=== PATIENT | female | born 2000 | race African-American/Black ===

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

== ENCOUNTER 2022-05-26 17:29 | Outpatient (CLI) | payer OTHER, SELFPAY ==
[2022-05-26 17:52] LABS: Basophils Percent Auto 0.3 % (0.2-1.2); Eosinophils Absolute Auto 0.1 K/mm3 (0-0.3); Hematocrit 32.2 % (37.0-47.0); Immature Granulocyte Percent A 1.8 % (0-0.5); Lymphocytes Absolute Auto 2.98 K/mm3 (0.9-3.2); Lymphocytes Percent Auto 26.2 % (18.3-44.2); Mean Corpuscular HGB Conc 31.1 g/dl (32-36); Mean Corpuscular Hemoglobin 23.7 pg (26-34); Mean Corpuscular Volume 76.3 fl (80-100); Mean Platelet Volume 10.7 fl (7.4-10.4); Monocytes Absolute Auto 0.9 K/mm3 (0.1-0.6); Monocytes Percent Auto 8.2 % (2.6-8.5); Neutrophils Absolute Auto 7.1 K/mm3 (1.3-6.7); Neutrophils Percent Auto 62.5 % (45.5-73.1); Platelet Count Result 275 k/mm3 (150-375); Red Blood Count 4.22 M/mm3 (4.2-5.4); Red Cell Distribution Width 15.9 % (11.5-14.5); White Blood Count 11.4 K/mm3 (4.5-10.0)
[2022-05-26 20:19] LABS: HIV 1/2 Ab P24 Ag Result Negative (Negative)
== END 2022-05-26 17:30 | disposition home or self-care (01) ==
LOC: ANHLAB 17:31
PROVIDERS: PCP Nurse Practitioner Family; Visit Provider Obstetrics & Gynecology
DX: Z34.90 Encounter for supervision of normal pregnancy, unspecified, unspecified trimester (principal); Z3A.00 Weeks of gestation of pregnancy not specified
CPT/HCPCS: 36415; 85025; 86703; G0432

== ENCOUNTER 2022-06-23 06:09 | Inpatient (IN) | payer OTHER, SELFPAY ==
[2022-06-23] VITALS (48 sets, daily range): BP systolic 70–152; BP diastolic 13–105; PULSE 69–150; RESP 16–18; TEMP 36.2–36.7; O2SAT 98–100; BMI 33.8
--- NOTE | 2022-06-23 06:48 | LDADM ---
This patient, Bernie Rosales, was admitted to Labor/Delivery/Recovery 104 on 06/23/22 at 06:09. Plans for labor, pain management and were discussed with patient. Patient/family oriented to hospital policies and general routines including ID bracelet, bed and alarms, visiting hours, pain management, procedures, bathroom and other care routines, personal items, smoking policy, room service/diet and guest tray routines, infant security routines, and visiting hours. Patient/Family are encouraged to report perceived risks to care and to ask questions if they do not understand what they are told or what they should do. See OBIX for further documentation.
[2022-06-23 07:01] LABS: Basophils Percent Auto 0.2 % (0.2-1.2); Eosinophils Absolute Auto 0.1 K/mm3 (0-0.3); Eosinophils Percent Auto 0.7 % (0-4.4); Hematocrit 32.7 % (37.0-47.0); Immature Granulocyte Absolute 0.15 K/mm3 (0.00-0.031); Immature Granulocyte Percent A 1.5 % (0-0.5); Lymphocytes Absolute Auto 3.01 K/mm3 (0.9-3.2); Lymphocytes Percent Auto 29.5 % (18.3-44.2); Mean Corpuscular HGB Conc 30.6 g/dl (32-36); Mean Corpuscular Hemoglobin 23.5 pg (26-34); Mean Corpuscular Volume 76.9 fl (80-100); Monocytes Absolute Auto 0.9 K/mm3 (0.1-0.6); Monocytes Percent Auto 8.5 % (2.6-8.5); Neutrophils Absolute Auto 6.1 K/mm3 (1.3-6.7); Neutrophils Percent Auto 59.6 % (45.5-73.1); Platelet Count Result 244 k/mm3 (150-375); Red Blood Count 4.25 M/mm3 (4.2-5.4); Red Cell Distribution Width 17.6 % (11.5-14.5); White Blood Count 10.2 K/mm3 (4.5-10.0)
[2022-06-23] MEDS: LACTATED RINGERS 1,000 ML 125 ML IV CONT ×2 (07:04→12:08)
[2022-06-23] MEDS: OXYTOCIN 30 UNITS/NS 500 ML 30 UNITS/500 ML BAG IV CONT (07:06)
[2022-06-23] MEDS: AMPICILLIN 2 GM/NS 100 ML 2 GM/100 ML BAG IVPB (07:06)
--- NOTE | 2022-06-23 07:14 | WPDOBADMIT ---
Obstetrics - Admit Note Admission Note: record reviewed. No pertinent additions to the history and/or any subsequent changes in the physical findings that are not consistent with the expected course of the were found. Additions to the history and/or subsequent changes in the physical findings follow. Bernie is a 21yo @40.1wks who presents for elective induction of labor. Her is complicated by: - Varicella non-immune - Mild anemia on iron daily - Obesity; BMI 35 - Short interpregnancy interval; last delivery 03/2021 - GBS positive FHT's: 140's/ mod brittni/ + accels/ no decels - cat 1 TOCO: ctx's q4min Cervix: /-2 Membranes: intact; GBS positive Presentation: cephalic Pitocin augmentation Will AROM after dose of ampicillin Anesthesia consult PRN pain Continuous monitoring
--- NOTE | 2022-06-23 07:24 | WPDHPUPDATE1 ---
History and Physical Update Update Date/Time: 06/23/22 07:24 History and Physical has been reviewed, including an updated exam of the patient. There are NO changes in the patient's condition. Risks, benefits, and alternatives have been discussed and questions answered. Patient agrees to proceed with procedure.
[2022-06-23 08:04] LABS: Hepatitis B Surface Antigen Negative (Negative)
[2022-06-23 09:21] LABS: Rapid Plasma Reagin Non-Reactive (NonReactive)
--- NOTE | 2022-06-23 10:43 | PM.OBPNLAB ---
Pain Control Date/time seen: 06/23/22 10:43 Pain control: tolerating well Pelvic Exam Dilation (cm): 5 Effacement (%): 50 station: -2 Amniotic membrane status: Ruptured (AROM, light mec 1040) Contractions Monitor mode: Internal Status status: Category ll Comments: occasional mild variable; good variability Assessment and Plan Pitocin rate (mU/min): 12 Assessment: induction ongoing Plan: continuous present management Comments: consult anesthesia PRN pain
[2022-06-23] MEDS: AMPICILLIN 1 GM/NS 50 ML 1 GM/50 ML BAG IVPB (11:15)
--- NOTE | 2022-06-23 12:18 | WPDANESEPP ---
Anes - Eval Pre Procedure Procedure: labor pain management Date/Time: 06/23/22 12:18 Surgeon: Milton Preop Diagnosis: pain during labor Pre Op Diagnosis: Induction of Labor Patient Data Age: 21 Gender: F Height: 1.7 m Weight: 98 kg Last Vital Signs Temp 97.1 F L 06/23/22 10:40 Pulse 91 06/23/22 12:16 BP 133/76 06/23/22 12:16 Pulse Ox 99 06/23/22 12:16 O2 Del Method Room Air 06/23/22 06:46 Allergies Allergy/AdvReac Type Severity Reaction Status Date / Time No Known Allergies Allergy Verified 06/23/22 06:53 Home Medications Medication Instructions Recorded Confirmed Type ferrous sulfate 325 mg (65 mg 325 mg PO DAILY #90 tabs 04/16/22 06/23/22 Rx iron) tablet vitamin #56-iron 35 mg 1 cap PO DAILY #90 caps 04/16/22 06/23/22 Rx and 5 mg-folic acid 1 mg-dha capsule Laboratory Tests 06/23/22 06/23/22 06/23/22 06:45 06:45 06:45 WBC 10.2 K/mm3 H K/mm3 (4.5-10.0) RBC 4.25 M/mm3 M/mm3 (4.2-5.4) Hgb 10.0 g/dL L g/dL (12.0-15.0) Hct 32.7 % L % (37.0-47.0) MCV 76.9 fl L fl (80-100) MCH 23.5 pg L pg (26-34) MCHC 30.6 g/dl L g/dl (32-36) RDW 17.6 % H % (11.5-14.5) Plt Count 244 k/mm3 k/mm3 (150-375) MPV 11.0 fl H fl (7.4-10.4) Immature Gran % (Auto) 1.5 % H % (0-0.5) Neut % (Auto) 59.6 % % (45.5-73.1) Lymph % (Auto) 29.5 % % (18.3-44.2) [place] % (Auto) 8.5 % % (2.6-8.5) Eos % (Auto) 0.7 % % (0-4.4) Baso % (Auto) 0.2 % % (0.2-1.2) Lymph # (Auto) 3.01 K/mm3 K/mm3 (0.9-3.2) [place] # (Auto) 0.9 K/mm3 H K/mm3 (0.1-0.6) Eos # (Auto) 0.1 K/mm3 K/mm3 (0-0.3) Baso # (Auto) 0.0 K/mm3 K/mm3 (0.0-0.1) Abs Immat Gran (auto) 0.15 K/mm3 H K/mm3 (0.00-0.031) Absolute Neuts (auto) 6.1 K/mm3 K/mm3 (1.3-6.7) Absolute Nucleated RBC 0.0 K/mm3 K/mm3 (0.0-0.012) Nucleated RBC % 0.0 % % (0.0-0.2) RPR Non-reactive (NonReactive) Hep Bs Antigen Blood Type O Positive Antibody Screen Negative 06/23/22 06:45 WBC RBC Hgb Hct MCV MCH MCHC RDW Plt Count MPV Immature Gran % (Auto) Neut % (Auto) Lymph % (Auto) [place] % (Auto) Eos % (Auto) Baso % (Auto) Lymph # (Auto) [place] # (Auto) Eos # (Auto) Baso # (Auto) Abs Immat Gran (auto) Absolute Neuts (auto) Absolute Nucleated RBC Nucleated RBC % RPR Hep Bs Antigen Negative (Negative) Blood Type Antibody Screen Patient hx anesthesia problems: none Family hx anesthesia problems: none Results Review: All pre-operative results and documents have been reviewed as part of the pre-operative evaluation. [facility] Past Medical History Medical History Anxiety and depression Morbid obesity Family History Family History Other No pertinent family history Social History Social History Smoking status: Former smoker Alcohol intake: never Substance use: never Lack of Transportation: No Lack of Food: Never True Current Housing: I Have Housing Concerned About Future Housing: No Difficulty Paying Gas/Electric Bills: No Difficulty Paying for Meds: No Currently Unemployed: No Education: High School Diploma/GED Difficulty w/ Childcare or Family Care: No Gender identity (if verbalized by the patient): Female Spiritual care concerns: No Exam Day of Procedure 06/23/22 12:18
--- NOTE | 2022-06-23 12:47 | PM.OBPRVD ---
OB - Delivery Note Procedure Delivery date: 06/23/22 Events: Elective Induction of Labor Induction method: Per Pitocin Protocol Delivery augmentation: Rupture of Membranes Delivery monitor: External FHT and Internal Uterine Route of delivery: Laceration Description: Periurethral Delivery repair: vicryl Specimen: No Quantitative Blood Loss (ml): 250 Anesthesia type: Epidural Disposition: Floor Baby Date of : 06/23/22 Time of : 12:30 Weeks of gestation at delivery: 40 (.1) Infant gender: Female Weight (pounds): 7 Weight (ounces): 3 presentation: vertex position: Left Occiput Anterior Placenta delivery description: Expressed Cord Vessel Description: 3 Vessels and Delayed Cord Clamping score one minute: 9 score five minutes: 9 Narrative: Bernie received her epidural, then shortly after reported significant pelvic pressure. She was examined and found to be completely dilated. She pushed four times with good maternal effort and delivered the head over intact perineum. No nuchal cord was palpated. She easily delivered the 's shoulders and body without complication. The infant had spontaneous cry and her mouth and nose were bulb suctioned. Delayed cord clamping was performed. The umbilical cord was then clamped and cut. A segment of the cord was collected for cord gases. The remaining cord blood was collected for typing. With Pitocin running and gentle downward traction on the cord, the placenta delivered without complications. Bimanual massage was performed and good uterine tone with minimal bleeding was noted. She was examined and a small periurethral laceration was noted to be bleeding. The laceration was repaired in the normal fashion using 3-0 Vicryl and the laceration was found to be hemostatic. Good fundal tone with minimal bleeding remained. Sponge, lap, instrument, needle counts were correct at the end of the procedure. Mom and baby were left bonding in the birthing suite in stable condition. [facility] Delivery Billing Delivery Delivery: Delivery Charge
[2022-06-23] MEDS: OXYTOCIN 30 UNITS/NS 500 ML 30 UNITS/500 ML BAG 125 UNITS IV CONT (12:57)
--- NOTE | 2022-06-23 16:42 | PC.NURSE ---
Patient transferred to post room #284 via wheelchair. Support person present. Oriented to unit, room, information board, rooming in, admission packet and security measures. Patient verbalizes understanding.
[2022-06-23] MEDS: IBUPROFEN 600 MG TABLET PO ×2 (16:59→23:37)
[2022-06-23] MEDS: DOCUSATE SODIUM 100 MG CAPSULE PO (17:00)
[2022-06-23] MEDS: POLYSACCHARIDE IRON COMPLEX 150 MG CAPSULE PO (17:00)
[2022-06-24 04:29] VITALS: BP 112/66; PULSE 71; RESP 16; TEMP 36.7; O2SAT 100
[2022-06-24 04:36] LABS: Hematocrit 28.7 % (37.0-47.0); Hemoglobin 8.8 g/dL (12.0-15.0)
--- NOTE | 2022-06-24 07:38 | WPDANLDPN2 ---
Anes-Prog Note L&D Date/Time: 06/24/22 07:38 Comfortable throughout: labor and delivery Neuraxial method: epidural Epidural/Spinal procedure site: clean & non-tender Neuro status: Neuro function grossly intact. Cardiovascular status: normal Respiratory status: normal Airway patency: baseline Mental status: baseline Post-Op hydration status: normal Vital Signs: Last Vital Signs Temp 36.7 C 06/24/22 04:29 Pulse 71 06/24/22 04:29 Resp 16 06/24/22 04:29 BP 112/66 06/24/22 04:29 Pulse Ox 100 06/24/22 04:29 O2 Del Method Room Air 06/23/22 23:40 Pain score (VAS): 310 I/O: Intake & Output 06/23/22 06/23/22 06/24/22 15:59 23:59 07:59 Intake Total 1000 240 Output Total 325 Balance 675 240 Post-procedural complaints: none Patient feedback: Patient satisfied with anesthetic care.
[2022-06-24 08:15] VITALS: BP 107/62; PULSE 70; RESP 16; TEMP 36.7; O2SAT 100
[2022-06-24] MEDS: POLYSACCHARIDE IRON COMPLEX 150 MG CAPSULE PO (09:00)
[2022-06-24] MEDS: DOCUSATE SODIUM 100 MG CAPSULE PO (09:00)
[2022-06-24] MEDS: MULTIVIT/MIN/PREN/FOL AC/IRON TABLET 1 TAB PO (09:00)
[2022-06-24] MEDS: IBUPROFEN 600 MG TABLET PO (09:00)
[2022-06-24 09:15] VITALS: PULSE 70; RESP 16; O2SAT 100
[2022-06-24 12:09] VITALS: BP 110/58; PULSE 70; RESP 16; TEMP 36.9; O2SAT 100
--- NOTE | 2022-06-24 12:19 | PM.OBPNVD ---
OB - PN: Subj Subjective Date/time seen: 06/24/22 12:05 Narrative: PPD#1 Serenity reports doing well today. 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 Her pain is controlled. She is tolerating regular diet, voiding, passing gas, and ambulating without issues. She denies symptoms of anemia. She is bottle feeding. She would like a depo shot. She would like to be discharged home today. OB - PN: Obj Data Labs 06/24/22 04:14 Labs: Laboratory Results - last 24 hr 06/23/22 06/23/22 06/23/22 06:45 06:45 06:45 Hgb Hct RPR Non-reactive Hep Bs Antigen Negative Antibody Screen Negative 06/24/22 04:14 Hgb 8.8 L Hct 28.7 L RPR Hep Bs Antigen Antibody Screen OB - PN A/P Assessment and Plan (1) Normal spontaneous vaginal delivery: Code(s): O80 - Encounter for full-term uncomplicated delivery Status: Acute (2) Anemia affecting second : Code(s): O99.019 - Anemia complicating , unspecified trimester Status: Acute Plan day: 1 Plan: routine care and discharge home Comments: - depo-provera shot before discharge home. - Pelvic rest; take meds as prescribed - ER return precautions: fever, n/v/abd pain, bleeding, HTN Time Spent With Patient Time: Total time spent is greater than 50% in coordination of care (as documented) at patient's floor/unit and/or counseling patient: Review of Systems Constitutional: Constitutional: Denies chills, Denies fever(s) and Denies headache(s) Eyes: Eyes: Denies change in vision ENT: Denies dizziness and Denies headache(s) Cardiovascular: Cardiovascular: Denies chest pain, Denies palpitations and Denies dyspnea Respiratory: Respiratory: Denies cough and Denies dyspnea Gastrointestinal: Gastrointestinal: Denies nausea and Denies vomiting Neurologic: Denies dizziness and Denies headache(s) Endocrine: Endocrine: Denies palpitations Exam Const: General: cooperative, comfortable and no acute distress Orientation/consciousness: patient oriented x3 Resp: Effort & Inspection: normal respiratory effort Auscultation: clear to auscultation bilaterally Cardio: Rate: regular rate GI: Inspection: non-distended GI Palp: No abdominal tenderness and Yes Soft to palpation Auscultation: normal bowel sounds : Other: fundus firm Skin: General skin exam: normal color Neuro: General: patient oriented x3 Extrem: General: normal to inspection Psych: Appearance: grossly normal Affect: normal affect Attitude: cooperative
[2022-06-24] MEDS: medroxyPROGESTERone ACETATE IM 150 MG/ML SYR IM (12:30)
--- NOTE | 2022-07-09 13:05 | PM.OBDSVD ---
DS: Admitting Diagnosis Discharge Date 06/24/22 Admitting Diagnosis induction of labor DS: Discharge Diagnosis Discharge Diagnosis (1) Normal spontaneous vaginal delivery: Code(s): O80 - Encounter for full-term uncomplicated delivery Status: Acute (2) Anemia affecting second : Code(s): O99.019 - Anemia complicating , unspecified trimester Status: Acute OB - DS: Summary OB Procedures : Ultrasound OB Procedures Intrapartum: Spontaneous Vag Delivery OB Procedures: : None Peripartum Data Infant Delivery Method: Natural Vaginal complications: none [place] 1: Gender: Female Disposition of : home Status at Discharge Functional status at discharge: independent ambulation Overall status at discharge: patient is back to baseline Time Spent with Patient Time attestation: Total time spent providing and/or coordinating discharge services: Time spent: Less than 30 minutes Exam Const: General: cooperative, comfortable and no acute distress Orientation/consciousness: patient oriented x3 Resp: Effort & Inspection: normal respiratory effort Auscultation: clear to auscultation bilaterally Cardio: Rate: regular rate GI: Inspection: non-distended GI Palp: No abdominal tenderness and Yes Soft to palpation Auscultation: normal bowel sounds : Other: fundus firm Skin: General skin exam: normal color Neuro: General: patient oriented x3 Extrem: General: normal to inspection Psych: Appearance: grossly normal Affect: normal affect Attitude: cooperative Discharge Plan Discharge Attending physician on discharge: Danielle Rose Consulting providers: Gisselle Ashley ; Sera Leo Discharging Clinician: Danielle Rose Anticipated Discharge Date/Time: 06/24/22 14:00 Patient Disposition: Home, Self-Care Activity: may shower and pelvic rest Diet: regular Discharge Instructions: Education: Mom and Baby Guide Given to: Mother Follow-Up: Call your delivering provider's office for an appointment to be seen in: 4 Weeks Mom and baby should come to the [facility] for the follow-up appointment. Appointment Date/Time: June 25, 2022 at 11:00 am What to expect at your follow-up visit: Blood Pressure Check Physical Assessment Call [phone] if you are unable to keep your appointment time. BREAST CARE: * Wear a snug supportive bra. * For engorgement discomfort: Bottle Feeding: * May apply ice packs * Do NOT pump milk from breasts, this will cause your body to produce more EPISIOTOMY/PERINEAL CARE: * Until bleeding stops, use your rashel bottle after urinating * Change your pad frequently throughout the day * You may take sitz baths several times a day (fill your bathtub with warm water and soak for 20 minutes.) Do NOT bathe in the water * No tub baths until seen by your physician - You may shower ACTIVITY: * Rest as much as possible. * Do not exercise or lift anything heavier than your baby (such as laundry or other children.) * Avoid stairs or driving as much as possible. * Do not put anything into the vagina. No douching, tampons, or sexual activity until seen by physician. NOTIFY PHYSICIAN IF YOU HAVE ANY QUESTIONS OR IF ANY OF THE FOLLOWING SYMPTOMS OCCUR: * If your vaginal delivery becomes red, swollen, or more painful than what you have experienced in the hospital. * If your vaginal bleeding becomes foul smelling. * If your vaginal bleeding becomes more heavy than a period or if your bleeding changes from pink to bright red. However, you may pass an occasional walnut-sized clot once or twice for the first week . * If you experience a sharp, shooting pain in your calves. * If you discover a hard, reddened area on your breast or if you experience flu-like symptoms. DIET: * Eat regular, well-balanced meals. * Drink plenty
== END 2022-06-24 14:15 | disposition home or self-care (01) | DRG 560 ==
LOC: ANHLDR 06:15 → ANHOB2 17:02
PROVIDERS: Admitting Provider Obstetrics & Gynecology; PCP Nurse Practitioner Family; Visit Provider Obstetrics & Gynecology
DX: O99.824 Streptococcus B carrier state complicating childbirth (principal); E66.01 Morbid (severe) obesity due to excess calories; O99.02 Anemia complicating childbirth; O99.214 Obesity complicating childbirth; O77.0 Labor and delivery complicated by meconium in amniotic fluid; O62.3 Precipitate labor; Z3A.40 40 weeks gestation of pregnancy; Z37.0 Single live birth; O71.82 Other specified trauma to perineum and vulva
CPT/HCPCS: 36415; 85014; 85018; 85025; 86592; 86850; 86900; 86901; 87340; A9270; J0290; J1050; J2590; J2795; J7120